=== PATIENT | male | born 1970 | race Caucasian/White ===

== ENCOUNTER 2018-04-06 23:59 | Emergency (ER) | payer MEDICARE, MEDICAID ==
[~2018-04-06] VITALS: Ht 182.9 cm; Wt 76.7 kg
[~2018-04-06 23:59] MED LIST: DIVA125T2 PO; RISP0.2518 PO
[2018-04-07 00:01] VITALS: BP 150/68
== END 2018-04-07 00:21 | disposition left against medical advice (07) ==
LOC: ED 04-07 00:15
DX: Z53.21 Procedure and treatment not carried out due to patient leaving prior to being seen by health care provider (principal)

== ENCOUNTER 2018-06-30 22:03 | Emergency (ER) | payer MEDICARE, MEDICAID ==
[~2018-06-30] VITALS: Ht 182.9 cm; Wt 77.3 kg
--- NOTE | 2018-06-30 22:06 | NUR ---
CALLED SEVERAL TIMES NO ANSWER.
--- NOTE | 2018-06-30 22:12 | NUR ---
NO ANSWER, NEXT PT CALLED
[2018-06-30 22:16] VITALS: BP 105/71
--- NOTE | 2018-06-30 23:00 | NUR ---
PT CALLED FOR ROOM, NO ANSWER, NEXT PT ROOMED.
--- NOTE | 2018-06-30 23:33 | NUR ---
NO ANSWER, CALLED FOR ROOM, NEXT PT ROOMED
== END 2018-06-30 23:47 | disposition left against medical advice (07) ==
LOC: ED 23:41
DX: M79.671 Pain in right foot (principal); M79.672 Pain in left foot; Z59.0 Homelessness
CPT/HCPCS: 99281